=== PATIENT | male | born 1980 | race Caucasian/White ===

== ENCOUNTER 2017-02-12 18:48 | Emergency (ER) | payer MEDICAID ==
[~2017-02-12] VITALS: Ht 172.7 cm; Wt 92.0 kg
[2017-02-12 18:48] VITALS: BP 136/87
[2017-02-12] MEDS ORDERED: HYDROcodone/APAP 5/325 TABLET ONE (19:25)
[2017-02-12] MEDS ORDERED: HYDROcodone/APAP 5/325 TABLET PO ONE (19:30)
[2017-02-12] MEDS ORDERED: DIPH,PERTUSS(ACELL),TET VAC/PF 0.5 ML IM-VACC ONE ×2 (19:30→19:33)
== END 2017-02-12 20:26 | disposition home or self-care (01) ==
LOC: ED 20:20
DX: S00.83XA Contusion of other part of head, initial encounter (principal); S00.511A Abrasion of lip, initial encounter; Y04.0XXA Assault by unarmed brawl or fight, initial encounter; Y93.89 Activity, other specified; Y92.410 Unspecified street and highway as the place of occurrence of the external cause; Y99.8 Other external cause status
CPT/HCPCS: 70450; 70486; 90471; 90715